=== PATIENT | male | born 1950 | race Caucasian/White ===

== ENCOUNTER 2020-12-23 12:26 | Day surgery (SDC) | payer MEDICARE, MEDICAID ==
[2020-12-21 13:23] LABS: COVID AG,FIA SOURCE NASOPHARYNGEAL
[~2020-12-23] VITALS: Ht 154.9 cm; Wt 70.5 kg
[~2020-12-23 12:26] MED LIST: SODIUM CHLORIDE 0.9% 1,000 ML IV ONE; SODIUM CHLORIDE 0.9% 1,000 ML ONE
[2020-12-23] MEDS ORDERED: PROPOFOL 1% 20 ML VIAL IVP ONE (12:27)
[2020-12-23] MEDS ORDERED: FURO40 PO (13:22)
[2020-12-23] MEDS ORDERED: PANT-31 PO (13:22)
[2020-12-23] MEDS ORDERED: CA C1TAB98 PO (13:22)
[2020-12-23] MEDS ORDERED: DIPH50CA35 PO (13:22)
[2020-12-23] MEDS ORDERED: LOSA25TA21 PO (13:22)
== END 2020-12-23 16:00 | disposition home or self-care (01) ==
LOC: SURGERY 12:26
PROVIDERS: ATTEND Internal Medicine Gastroenterology
DX: I85.00 Esophageal varices without bleeding (principal); Z98.890 Other specified postprocedural states; I10 Essential (primary) hypertension; D64.9 Anemia, unspecified; K74.60 Unspecified cirrhosis of liver; K64.8 Other hemorrhoids; D50.9 Iron deficiency anemia, unspecified; Z79.899 Other long term (current) drug therapy
CPT/HCPCS: 43235; 87426; C9803; J2704; J7030